=== PATIENT | female | born 1990 | race African-American/Black ===

== ENCOUNTER 2022-03-27 13:40 | Emergency (ER) | payer SELFPAY ==
[~2022-03-27] VITALS: Ht 167.6 cm; Wt 131.5 kg
[2022-03-27] MEDS ORDERED: SODIUM CHLORIDE 0.9% 1000ML 1,000 ML IV SCH (14:30)
[2022-03-27] MEDS ORDERED: ACETAMINOPHEN 325 MG TAB PO ONE (14:30)
[2022-03-27] MEDS ORDERED: CLONIDINE HCL 0.1 MG TAB PO ONE (14:45)
[2022-03-27] MEDS ORDERED: CLONIDINE HCL 0.1 MG TAB ONE (15:24)
[2022-03-27] MEDS ORDERED: AMLODIPINE BESY10 MG PO (17:09)
[2022-03-27] MEDS ORDERED: HYDROCHLOROTHIA25 MG PO (17:11)
[2022-03-27 17:35] VITALS: BP 168/97
== END 2022-03-27 17:41 | disposition home or self-care (01) ==
LOC: FSED 14:12
DX: R51.9 Headache, unspecified (principal); J06.9 Acute upper respiratory infection, unspecified; I10 Essential (primary) hypertension; Z91.14 Patient's other noncompliance with medication regimen
CPT/HCPCS: 70450; 71046; 93005; 99284; J7030

== ENCOUNTER 2022-06-26 12:30 | Emergency (ER) | payer MEDICARE ==
[~2022-06-26] VITALS: Ht 167.6 cm; Wt 132.1 kg
[~2022-06-26 12:30] MED LIST: AMLODIPINE BESY10 MG PO; HYDROCHLOROTHIA25 MG PO
[2022-06-26] MEDS ORDERED: IBUPROFEN 600 MG TAB PO STA (12:42)
[2022-06-26] MEDS ORDERED: IBUPROFEN 600 MG TAB ONE (13:02)
[2022-06-26] MEDS ORDERED: MELOXICAM15 MG PO (14:17)
== END 2022-06-26 15:16 | disposition home or self-care (01) ==
LOC: FSED 12:39
DX: S93.401A Sprain of unspecified ligament of right ankle, initial encounter (principal); X50.1XXA Overexertion from prolonged static or awkward postures, initial encounter; I10 Essential (primary) hypertension
CPT/HCPCS: 99283

== ENCOUNTER 2022-07-30 10:58 | Emergency (ER) | payer SELFPAY ==
[~2022-07-30] VITALS: Ht 167.6 cm; Wt 131.5 kg
[~2022-07-30 10:58] MED LIST changes: +MELOXICAM15 MG PO
[2022-07-30] MEDS ORDERED: TAMIFLU75 MG PO (11:49)
== END 2022-07-30 12:11 | disposition home or self-care (01) ==
LOC: FSED 11:19
DX: R05.9 Cough, unspecified (principal); J10.1 Influenza due to other identified influenza virus with other respiratory manifestations; I10 Essential (primary) hypertension; G93.5 Compression of brain; D76.3 Other histiocytosis syndromes
CPT/HCPCS: 83518; 87400; 99282